=== PATIENT | female | born 1995 | race African-American/Black ===

== ENCOUNTER 2024-09-29 22:02 | Emergency (ER) | payer BC, OTHER ==
[2024-09-29] MEDS ORDERED: KETOROLAC 30 MG/ML INJ ONE (22:19)
[2024-09-29] MEDS ORDERED: MORPHINE 2 MG/ML SYR ONE (22:20)
[2024-09-29] MEDS ORDERED: NA CHLORIDE 0.9% 500 ML ONE (22:21)
[2024-09-29 22:45] LABS: Absolute Basophils 0.1 K/uL (0-0.5); Absolute Eosinophils 0.2 K/uL (0-0.5); Absolute Lymphocytes (CBC) 2.3 K/uL (0.7-4.9); Absolute Monocytes 0.7 K/uL (0.1-1.3); Basophils % 1.2 % (0-1.3); Eosinophils % 4.3 % (0-4.4); Hematocrit 41.6 % (36.0-45.0); Hemoglobin 14.1 g/dL (12.0-15.0); Lymphocytes % 44.3 % (15.3-44.8); MCH 29.5 pg (27.0-35.0); MCV 86.9 fL (80-100); MPV 8.1 fL (7.6-11.3); Neutrophils % 37.2 % (41.7-73.7); Platelets 246 thou/uL (152-406); RBC Red Blood Cell Count 4.79 M/uL (3.86-4.86); Red Cell Distribution Width 12.8 % (12.1-15.2)
[2024-09-29 23:16] LABS: Albumin 3.3 g/dL (3.4-5.0); Albumin/Globulin Ratio 0.8 (1.1-1.8); Anion Gap 8.8 mEq/L (5.0-15.0); Bilirubin Total 0.5 mg/dL (0.2-1.0); Globulin 4.4 g/dL (2.3-3.5); Potassium 3.8 mEq/L (3.5-5.1); Protein, Total 7.7 g/dL (6.4-8.2)
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
[2024-09-30 01:57] VITALS: O2SAT 100
[2024-09-30 02:01] VITALS: BP 97/66; TEMP 97.8
== END 2024-09-30 01:53 | disposition home or self-care (01) ==
LOC: ER 22:02
DX: S30.0XXA Contusion of lower back and pelvis, initial encounter (principal); V89.2XXA Person injured in unspecified motor-vehicle accident, traffic, initial encounter
CPT/HCPCS: 96361; 85025; 36415; 84703; 80053; 96375; 96374; 99284; 82077; J2270; J7040